=== PATIENT | male | born 1945 | race Caucasian/White ===

== ENCOUNTER 2021-04-26 13:31 | Emergency (ER) | payer OTHER ==
[2021-04-26 14:32] LABS: Absolute Lymphocytes (CBC) 0.8 K/uL (0.7-4.9); Basophils % 0.4 % (0-1.3); Lymphocytes % 10.1 % (15.3-44.8); MPV 7.7 fL (7.6-11.3); RBC Red Blood Cell Count 5.01 M/uL (4.33-5.43)
[2021-04-26 14:47] LABS: Protime INR 1.12
[2021-04-26 14:48] LABS: ALT/SGPT 29 U/L (12-78); AST/SGOT 23 U/L (15-37); Albumin 3.8 g/dL (3.4-5.0); Alkaline Phosphatase 51 U/L (45-117); BUN Blood Urea Nitrogen 19 mg/dL (7-18); Bicarbonate 27 mmol/L (21-32); Bilirubin Direct 0.2 mg/dL (0-0.2); Bilirubin Total 0.7 mg/dL (0.2-1.0); Glucose Level 188 mg/dL (74-106); Lipase 161 U/L (73-393); NT PRO-BNP 492 pg/mL (<450); Potassium 4.6 mmol/L (3.5-5.1); Protein, Total 7.8 g/dL (6.4-8.2); Sodium Level 143 mmol/L (136-145); Troponin (Emerg Dept Use Only) < 0.02 ng/mL (0.0-0.045)
[2021-04-26] MEDS ORDERED: MORPHINE 4 MG/ML SYR ONE (15:11)
[2021-04-26] MEDS ORDERED: ONDANSETRON 4 MG/2 ML VIAL ONE (15:11)
[2021-04-26] MEDS ORDERED: NA CHLORIDE 0.9% 0 ML ONE (15:11)
--- NOTE | 2021-04-26 15:23 | RAD REPORT ---
EXAM DESCRIPTION: RAD - Chest Single View - 04/26/2021 2:42 pm CLINICAL HISTORY: CHEST PAIN COMPARISON: Chest Single View dated 12/08/2015; CHEST SINGLE VIEW dated 05/06/2014; CHEST SINGLE VIEW dated 05/04/2014; CHEST SINGLE VIEW dated 04/04/2014 FINDINGS: Lines: Pacemaker/ICD. Lungs: No evidence of edema or pneumonia. Pleural: No significant pleural effusions or pneumothorax. Cardiac: The heart size is within normal limits. Bones: No acute fractures. Other: IMPRESSION: No acute cardiopulmonary disease.
[2021-04-26 15:29] LABS: Urine Blood 3+ (Negative); Urine Glucose Trace (Negative); Urine Protein 2+ (Negative); Urine Specific Gravity 1.025 (1.005-1.030)
--- NOTE | 2021-04-26 15:36 | RAD REPORT ---
EXAM DESCRIPTION: US - Abdomen Exam Limited - 04/26/2021 3:04 pm CLINICAL HISTORY: Abdominal pain. COMPARISON: 2013 FINDINGS: The gallbladder wall is not thickened. Small to moderate amount of sludge. Multiple tiny echogenic structures within the gallbladder probably gallstones The biliary tree is normal caliber. IMPRESSION: Mild to moderate gallbladder sludge Cholelithiasis. No evidence of cholecystitis
--- NOTE | 2021-04-26 15:36 | RAD REPORT ---
EXAM DESCRIPTION: CT - Abdomen Pelvis W Contrast - 04/26/2021 3:09 pm CLINICAL HISTORY: Abdominal pain COMPARISON: 2015 TECHNIQUE: Computed axial tomography of the abdomen pelvis was obtained. 100 cc Isovue-300 was admin istered intravenously. Oral contrast was not requested which limits evaluation of bowel. All CT scans are performed using dose optimization technique as appropriate and may include automated exposure control or mA/KV adjustment according to patient size. FINDINGS: Tiny hepatic cysts. Spleen, pancreas and adrenals are unremarkable Sludge and small gallstones. No gallbladder wall thickening Bilateral renal calculi. Mild right hydronephrosis. 3.5 millimeter calculus distal right ureter. Athe rosclerotic disease There is no evidence of diverticulitis. Small bilateral inguinal hernias. Marked enlargement of the prostate gland. Small hiatal hernia IMPRESSION: 3.5 millimeter calculus distal right ureter resulting in mild right hydronephrosis Cholelithiasis and sludge without evidence of cholecystitis
[2021-04-26] MEDS ORDERED: PROMETHAZINE INJ 25 MG/ML AMP ONE (16:23)
[2021-04-26] MEDS ORDERED: TAMSULOSIN 0.4 MG SR CAP ONE (16:24)
[2021-04-26] MEDS ORDERED: NA CHLORIDE 0.9% 1,000 ML ONE (16:24)
--- NOTE | 2021-04-26 16:59 | ER ---
Nurse's Notes [facility] Name: Brad Gill Age: 76 yrs Sex: Male : 1945 Arrival Date: 04/26/2021 Time: 13:34 Bed 20 Private MD: Brad Weaver T Diagnosis: Other cholelithiasis without obstruction;Calculus of ureter-right Presentation: 04/26 13:46 Chief complaint: Patient states: At 0900 started having Right flank pain. Denies any vg1 s/s of urine. Stated ate a sandwich and became nauseated and threw up; became diaphoretic and stated knew maybe blood sugar was low and ate a couple of pieces of candy and wasn't able to hold that down as well. FSBG in triage 162. Patient actively vomiting in triage. Coronavirus screen: Vaccine status: Patient reports receiving the 2nd dose of the covid vaccine. Ebola Screen: Patient negative for fever greater than or equal to 101.5 degrees Fahrenheit, and additional compatible Ebola Virus Disease symptoms. Initial Sepsis Screen: Does the patient meet any 2 criteria? No. Patient's initial sepsis screen is negative. Does the patient have a suspected source of infection? No. Patient's initial sepsis screen is negative. Risk Assessment: Do you want to hurt yourself or someone else? Patient reports no desire to harm self or others. Onset of symptoms was April 26, 2021. 13:46 Method Of Arrival: Ambulatory vg1 13:46 Acuity: JOSH 3 vg1 Triage Assessment: 13:49 General: Appears in no apparent distress. uncomfortable, Behavior is calm, cooperative. vg1 Pain: Complains of pain in Right flank. GI: Abdomen is round non-distended. Historical: - Allergies: 13:49 NKDA; vg1 - Home Meds: 13:49 gemfibrozil 600 mg Oral tab 1 tab 2 times per day [Active]; Lantus 100 unit/mL Sub-Q vg1 soln 35 unit daily [Active]; liothyronine 5 mcg Oral tab 1 tab once daily [Active]; lovastatin 20 mg Oral tab 1 tab once daily [Active]; metformin 750 mg Oral Tb24 twice a day [Active]; Synthroid 125 mcg Oral tab 1 tab once daily [Active]; - PMHx: 13:49 Pacemaker; vg1 - Immunization history:: Adult Immunizations up to date, Client reports receiving the 2nd dose of the Covid vaccine. - Social history:: Smoking status: Patient/guardian denies using tobacco, the patient reports quitting approximately 7 years ago. - Family history:: not pertinent. Vital Signs: 13:46 BP 213 / 84; Pulse 72; Resp 16; Temp 98.6; Pulse Ox 100% ; Weight 88.45 kg; Height 5 vg1 ft. 10 in. (177.80 cm); Pain 1/10; 16:06 BP 174 / 92; Pulse 79; Resp 18; Pulse Ox 98% ; ch5 16:48 BP 180 / 87; Pulse 77; Resp 16; Pulse Ox 98% ; ch5 13:46 Body Mass Index 27.98 (88.45 kg, 177.80 cm) vg1 ED Course: 13:34 Patient arrived in ED. as 13:34 Brad Weaver MD is Private Physician. as 13:49 Triage completed. vg1 13:49 Arm band placed on. vg1 13:54 Siri Wilson MD is Attending Physician. ma2 13:59 Danny Paige, OMER is Primary Nurse. ch5 14:42 XRAY Chest (1 view) In Process Unspecified. EDMS 15:04 US Abdomen Limited In Process Unspecified. EDMS 15:09 CT Abd/Pelvis - IV Contrast Only In Process Unspecified. EDMS 16:57 Hector Hickey MD is Referral Physician. ma2 16:58 Charly Gill MD is Referral Physician. ma2 Administered Medications: 15:33 Drug: NS 0.9% 1000 ml Route: IV; Rate: 1 bolus; Site: right antecubital; ch5 15:33 Drug: Zofran (Ondansetron) 4 mg Route: IVP; Site: right antecubital; ch5 16:05 Drug: Phenergan (promethazine) 25 mg Route: IVP; Site: right antecubital; ch5 16:06 Drug: Flomax (tamsulosin) 0.4 mg Route: PO; ch5 Outcome: 16:58 Discharge ordered by . ma2 17:22 Discharged to home via wheelchair. ch5 17:22 Discharged to 17:22 Condition: stable 17:22 Discharge instructions given to patient, family. 17:22 Prescriptions given X 2. 17:30 Patient left the ED. ch5 Signatures: Dispatcher [employer] Cora Hart Mohammad, MD MD ma2 Brooklyn Adam RN RN vg1 Danny Paige RN RN ch5 Corrections: (The following items were deleted from the chart) 13:49 13:46 Chief complaint: Patient states: At 0900 started having Right flank pain. Denies vg1 any s/s of urine. Stated ate a sandwich and became nauseated and threw up; became diaphoretic and stated knew maybe blood sugar was low and ate a couple of pieces of candy and wasn't able to hold that down as well. FSBG in triage 162. vg1 13:50 13:49 Social history: Smoking status: Patient denies any tobacco usage or history of. vg1 vg1
--- NOTE | 2021-04-26 16:59 | EDPHYS ---
Physician Documentation [facility] Name: Brad Gill Age: 76 yrs Sex: Male : 1945 Arrival Date: 04/26/2021 Time: 13:34 Bed 20 Private MD: Brad Weaver T ED Physician Siri Wilson HPI: 04/26 14:51 This 76 yrs old Male presents to ER via Ambulatory with complaints of ma2 Epigastric Pain. 14:51 This 76 yrs old Male presents to ER via Ambulatory with complaints of RUQ abd ma2 Pain. 14:51 Onset: The symptoms/episode began/occurred gradually, 1 day(s) ago. Associated signs ma2 and symptoms: Pertinent positives: vomiting, Pertinent negatives: anorexia, constipation, fever, headache, testicular pain, vomiting blood. Severity of pain: At its worst the pain was moderate. The patient has experienced similar episodes in the past. Historical: - Allergies: 13:49 NKDA; vg1 - Home Meds: 13:49 gemfibrozil 600 mg Oral tab 1 tab 2 times per day [Active]; Lantus 100 unit/mL Sub-Q vg1 soln 35 unit daily [Active]; liothyronine 5 mcg Oral tab 1 tab once daily [Active]; lovastatin 20 mg Oral tab 1 tab once daily [Active]; metformin 750 mg Oral Tb24 twice a day [Active]; Synthroid 125 mcg Oral tab 1 tab once daily [Active]; - PMHx: 13:49 Pacemaker; vg1 - Immunization history:: Adult Immunizations up to date, Client reports receiving the 2nd dose of the Covid vaccine. - Social history:: Smoking status: Patient/guardian denies using tobacco, the patient reports quitting approximately 7 years ago. - Family history:: not pertinent. ROS: 14:51 Constitutional: Negative for fever, chills, and weight loss, Cardiovascular: Negative ma2 for chest pain, palpitations, and edema, Respiratory: Negative for shortness of breath, cough, wheezing, and pleuritic chest pain, Abdomen/GI: Negative for abdominal pain, nausea, diarrhea, and constipation. 14:51 All other systems are negative. Exam: 14:51 Constitutional: This is a well developed, well nourished patient who is awake, alert, ma2 and in no acute distress. Chest/axilla: Normal chest wall appearance and motion. Nontender with no deformity. No lesions are appreciated. Cardiovascular: Regular rate and rhythm with a normal S1 and S2. No gallops, murmurs, or rubs. Normal PMI, no JVD. No pulse deficits. Respiratory: Lungs have equal breath sounds bilaterally, clear to auscultation and percussion. No rales, rhonchi or wheezes noted. No increased work of breathing, no retractions or nasal flaring. Abdomen/GI: Soft, non-tender, with normal bowel sounds. No distension or tympany. No guarding or rebound. No evidence of tenderness throughout. Skin: Warm, dry with normal turgor. Normal color with no rashes, no lesions, and no evidence of cellulitis. MS/ Extremity: Pulses equal, no cyanosis. Neurovascular intact. Full, normal range of motion. Neuro: Awake and alert, GCS 15, oriented to person, place, time, and situation. Cranial nerves II-XII grossly intact. Motor strength 5/5 in all extremities. Sensory grossly intact. Cerebellar exam normal. Normal gait. Vital Signs: 13:46 BP 213 / 84; Pulse 72; Resp 16; Temp 98.6; Pulse Ox 100% ; Weight 88.45 kg; Height 5 vg1 ft. 10 in. (177.80 cm); Pain 1/10; 16:06 BP 174 / 92; Pulse 79; Resp 18; Pulse Ox 98% ; ch5 16:48 BP 180 / 87; Pulse 77; Resp 16; Pulse Ox 98% ; ch5 13:46 Body Mass Index 27.98 (88.45 kg, 177.80 cm) vg1 MDM: 14:51 Differential diagnosis: cholecystitis, Cholelithiasis, gastritis, gastroesophageal ma2 reflux disease. 16:56 Data reviewed: vital signs, nurses notes. Counseling: I had a detailed discussion with ma2 the patient and/or guardian regarding: the historical points, exam findings, and any diagnostic results supporting the discharge/admit diagnosis, the presence of at least one elevated blood pressure reading (>120/80) during this emergency department visit, lab results, radiology results, the need for outpatient follow up. Response to treatment: the patient's symptoms have markedly improved after treatment. ED course: symptoms resolved, patient has right ureteric stone and gall bladder stone no acute cholecystitis . 16:58 Patient medically screened. ms2 04/26 13:55 Order name: Basic Metabolic Panel; Complete Time: 15:39 ma2 04/26 13:55 Order name: CBC with Diff; Complete Time: 15:39 ma2 04/26 13:55 Order name: LFT's; Complete Time: 15:39 ma2 04/26 13:55 Order name: Magnesium; Complete Time: 15:39 ma2 04/26 13:55 Order name: NT PRO-BNP; Complete Time: 15:39 ma2 04/26 13:55 Order name: PT-INR; Complete Time: 15:39 ma2 04/26 13:55 Order name: Troponin (emerg Dept Use Only); Complete Time: 15:39 ma2 04/26 13:55 Order name: XRAY Chest (1 view); Complete Time: 15:39 ma2 04/26 13:55 Order name: Lipase; Complete Time: 15:39 ma2 04/26 14:36 Order name: US Abdomen Limited; Complete Time: 15:39 ms2 04/26 14:36 Order name: CT Abd/Pelvis - IV Contrast Only; Complete Time: 15:39 ms2 04/26 15:28 Order name: Urine Dipstick-Ancillary; Complete Time: 15:39 EDMS 04/26 13:55 Order name: EKG; Complete Time: 13:55 ms2 04/26 13:55 Order name: Cardiac monitoring; Complete Time: 14:28 ms2 04/26 13:55 Order name: EKG - Nurse/Tech ms2 04/26 13:55 Order name: IV Saline Lock; Complete Time: 14:28 ms2 04/26 13:55 Order name: Labs collected and sent; Complete Time: 14:28 ma2 04/26 13:55 Order name: O2 Per Protocol; Complete Time: 14:28 ma2 04/26 13:55 Order name: O2 Sat Monitoring; Complete Time: 14:28 ma2 Administered Medications: 15:33 Drug: NS 0.9% 1000 ml Route: IV; Rate: 1 bolus; Site: right antecubital; ch5 15:33 Drug: Zofran (Ondansetron) 4 mg Route: IVP; Site: right antecubital; ch5 16:05 Drug: Phenergan (promethazine) 25 mg Route: IVP; Site: right antecubital; ch5 16:06 Drug: Flomax (tamsulosin) 0.4 mg Route: PO; ch5 Disposition Summary: 04/26/21 16:58 Discharge Ordered Location: Home ma2 Condition: Stable ma2 Diagnosis - Other cholelithiasis without obstruction ma2 - Calculus of ureter - right ma2 Followup: ma2 - With: Hector Hickey MD - When: Tomorrow - Reason: Continuance of care Followup: ma2 - With: Charly Gill MD - When: Tomorrow - Reason: If symptoms return, Continuance of care Discharge Instructions: - Discharge Summary Sheet ma2 - Kidney Stones ma2 - Cholelithiasis ma2 - Dietary Guidelines to Help Prevent Kidney Stones ma2 Forms: - Medication Reconciliation Form ma2 - Thank You Letter ma2 - Antibiotic Education ma2 - Prescription Opioid Use ma2 Prescriptions: - Zofran 4 mg Oral Tablet - take 1 tablet by ORAL route every 12 hours As needed; 20 tablet; Refills: 0, ma2 Product Selection Permitted - Diclofenac Sodium 75 mg Oral Tablet Sustained Release - take 1 tablet by ORAL route 2 times per day; 30 tablet; Refills: 0, Product ma2 Selection Permitted Signatures: Dispatcher [employer] EDMS Siri Wilson MD MD ma2 Brooklyn Adam RN RN vg1 Danny Paige RN RN ch5 Corrections: (The following items were deleted from the chart) 13:50 13:49 Social history: Smoking status: Patient denies any tobacco usage or history of. vg1 vg1
[2021-04-26 17:59] VITALS: TEMP 98.6
[2021-04-26 18:01] VITALS: O2SAT 98
[2021-04-26 18:02] VITALS: BP 180/87
== END 2021-04-26 17:30 | disposition home or self-care (01) ==
LOC: ER 13:31
DX: K80.80 Other cholelithiasis without obstruction (principal); N20.1 Calculus of ureter; Z95.0 Presence of cardiac pacemaker
CPT/HCPCS: 93005; 85025; 80048; 36415; 83735; 85610; 80076; 81003; 84484; 83690; 83880; 74177; 71045; 76705; Q9967; J2550; J7030; J2405; 96374; 96375; 99283